=== PATIENT | male | born 1995 | race Asian ===

== ENCOUNTER 2018-03-03 00:44 | Emergency (ER) | payer OTHER ==
[~2018-03-03] VITALS: Ht 170.2 cm; Wt 99.8 kg
[2018-03-03] MEDS ORDERED: KETOROLAC 30 MG/ML VIAL IVP STA (00:48)
[2018-03-03] MEDS ORDERED: LACTATED RINGERS 1,000 ML IV ONE (00:48)
--- NOTE | 2018-03-03 00:55 | ED Abdominal Pain ---
General Stated Complaint: ABD PAIN Source of Information: Patient, Other (MULTIPLE FRIENDS IN ROOM ALL TRYING TO TALK FOR PT AND ALL EXTREMELY ANXIOUS) Exam Limitations: Language Barrier (PT SPEAKS [place]) History of Present Illness Date Seen by Provider: Mar 03, 2018 Time Seen by Provider: 00:43 Initial Comments PT ARRIVES VIA POV WITH MULTIPLE FRIENDS PT C/O SEVERE RLQ PAIN X 30 MINUTES TO 1 HOUR + NAUSEA AND VOMITED X 2 NO DIARRHEA NO FEVER NO PRIOR HISTORY OF ABDOMINAL PROBLEMS OR SURGERIES TOOK UNKNOWN OTC MEDICATION JUST PRIOR TO ARRIVAL PT [facility] AFTER PAIN [facility] Allergies and Home Medications Allergies Coded Allergies: No Known Drug Allergies (Unverified , 03/03/18) Home Medications Hydrocodone/Ibuprofen 1 Each Tablet, 1-2 EACH PO Q4H Prescribed by: HUNTER PELAEZ on 03/03/18230 Ondansetron 4 Mg Tab.rapdis, 4 MG PO Q4H Prescribed by: HUNTER PELAEZ on 03/03/18230 Sulfamethoxazole/Trimethoprim 1 Each Tablet, 1 EACH PO BID Prescribed by: HUNTER PELAEZ on 03/03/18230 Tamsulosin HCl 0.4 Mg Cap, 0.4 MG PO DAILY Prescribed by: HUNTER PELAEZ on 03/03/18230 Patient Home Medication List Home Medication List Reviewed: Yes Review of Systems Constitutional: no symptoms reported Respiratory: No Symptoms Reported Cardiovascular: No Symptoms Reported Gastrointestinal: See HPI, Abdominal Pain; Denies Diarrhea; Nausea, Vomiting Genitourinary: No Symptoms Reported Musculoskeletal: no symptoms reported Skin: no symptoms reported Psychiatric/Neurological: Anxiety Past Ygokism-Ybacwu-Lprpos Hx Patient Social History Alcohol Use: Denies Use Recreational Drug Use: No Smoking Status: Never a Smoker Recent Foreign Travel: No Contact w/Someone Who Travel: No Past Medical History Surgeries: No Respiratory: No Cardiac: No Neurological: No Genitourinary: No Gastrointestinal: No Musculoskeletal: No Endocrine: No HEENT: No Cancer: No Did You Recieve Any Treatments: No Psychosocial: No Integumentary: No Physical Exam Vital Signs Capillary Refill : General Appearance: WD/WN, other (EXTREMELY ANXIOUS, HYPERVENTILATING) Respiratory: normal breath sounds, other (HYPERVENTILATING) Cardiovascular: regular rate, rhythm, no murmur Gastrointestinal: normal bowel sounds, soft, tenderness (DIFFUSE TENDERNESS, BUT MOST TENDER IN SUPRAPUBIC AREA AND LOW, RLQ AREA) Extremities: normal inspection, normal capillary refill Back: no vertebral tenderness, CVA tenderness (R) (MORE TENDER ON RIGHT), CVA tenderness (L) 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, no motor/sensory deficits, alert, oriented x 3 Skin: normal color, warm/dry Progress/Results/Core Measures Lab Results Laboratory Tests Test 03/03/18 00:50 03/03/18 02:18 Range/Units White Blood Count 13.0 H 4.3-11.0 10^3/uL Red Blood Count 5.00 4.35-5.85 10^6/uL Hemoglobin 14.9 13.3-17.7 G/DL Hematocrit 43 40-54 % Mean Corpuscular Volume 85 80-99 FL Mean Corpuscular Hemoglobin 30 25-34 PG Mean Corpuscular Hemoglobin Concent 35 32-36 G/DL Red Cell Distribution Width 11.9 10.0-14.5 % Platelet Count 238 130-400 10^3/uL Mean Platelet Volume 10.9 H 7.4-10.4 FL Neutrophils (%) (Auto) 67 42-75 % Lymphocytes (%) (Auto) 26 12-44 % Monocytes (%) (Auto) 7 0-12 % Eosinophils (%) (Auto) 0 0-10 % Basophils (%) (Auto) 0 0-10 % Neutrophils # (Auto) 8.7 H 1.8-7.8 X 10^3 Lymphocytes # (Auto) 3.3 1.0-4.0 X 10^3 Monocytes # (Auto) 1.0 0.0-1.0 X 10^3 Eosinophils # (Auto) 0.0 0.0-0.3 10^3/uL Basophils # (Auto) 0.1 0.0-0.1 10^3/uL Sodium Level 140 135-145 MMOL/L Potassium Level 3.7 3.6-5.0 MMOL/L Chloride Level 104 98-107 MMOL/L Carbon Dioxide Level 22 21-32 MMOL/L Anion Gap 14 5-14 MMOL/L Blood Urea Nitrogen 15 7-18 MG/DL Creatinine 1.11 0.60-1.30 MG/DL Estimat Glomerular Filtration Rate > 60 BUN/Creatinine Ratio 14 Glucose Level 150 H 70-105 MG/DL Calcium Level 10.4 H 8.5-10.1 MG/DL Total Bilirubin 0.5 0.1-1.0 MG/DL Aspartate Amino Transf (AST/SGOT) 32 5-34 U/L Alanine Aminotransferase (ALT/SGPT) 55 0-55 U/L Alkaline Phosphatase 63 40-136 U/L Total Protein 8.0 6.4-8.2 GM/DL Albumin 4.6 H 3.2-4.5 GM/DL Amylase Level 56 25-125 U/L Lipase 15 8-78 U/L Urine Color YELLOW Urine Clarity SLIGHTLY CLOUDY Urine pH 7 5-9 Urine Specific [place] 1.010 L 1.016-1.022 Urine Protein 1+ H NEGATIVE Urine Glucose (UA) NEGATIVE NEGATIVE Urine Ketones NEGATIVE NEGATIVE Urine Nitrite NEGATIVE NEGATIVE Urine Bilirubin NEGATIVE NEGATIVE Urine Urobilinogen NORMAL NORMAL MG/DL Urine Leukocyte Esterase NEGATIVE NEGATIVE Urine RBC (Auto) 5+ H NEGATIVE Urine RBC 50-100 H /HPF Urine WBC NONE /HPF Urine Squamous Epithelial Cells RARE /HPF Urine Crystals NONE /LPF Urine Bacteria NEGATIVE /HPF Urine Casts PRESENT /LPF Urine Hyaline Casts RARE /LPF Urine Mucus SMALL H /LPF Urine Culture Indicated NO My Orders Orders - HUNTER PELAEZ DO Saline Lock/Iv-Start (03/03/18 00:48) Amylase (03/03/18 00:48) Cbc With Automated Diff (03/03/18 00:48) Comprehensive Metabolic Panel (03/03/18 00:48) Lipase (03/03/18 00:48) Ua Culture If Indicated (03/03/18 00:48) Ct Abd/Pelvis Wo(Kidney Stone) (03/03/18 00:48) Abdomen/Kub 1view (03/03/18 00:48) Saline Lock/Iv-Start (03/03/18 00:48) Lactated Ringers (Lr 1000 Ml Iv Solution (03/03/18 00:48) Ketorolac Injection (Toradol Injection) (03/03/18 00:48) Diphenhydramine Injection (Benadryl Inje (03/03/18 01:00) Alfuzosin (Not Stocked) (Uroxatral (Not (03/03/18 02:15) Rx-Trimeth/Sulfameth Ds Tab (Rx-Bactrim/ (03/03/18 02:10) Rx-Hydrocodone/Apap 5-325 Mg (Rx-Vicodin (03/03/18 02:15) Medications Given in ED Current Medications Medications Dose Ordered Sig/Emilee Route Start Time Stop Time Status Last Admin Dose Admin Acetaminophen/ Hydrocodone Bitart 1 ea Q4H PRN PO 03/03/18 02:15 03/03/18 02:46 DC 03/03/18 02:30 1 EA Diphenhydramine HCl 50 mg ONCE ONCE IVP 03/03/18 01:00 03/03/18 01:01 DC 03/03/18 01:05 50 MG Lactated Ringer's 1,000 ml @ 0 mls/hr Q0M ONCE IV 03/03/18 00:48 03/03/18 00:51 DC 03/03/18 01:04 999 MLS/HR Progress Note : Progress Note SYMPTOMS COMPLETELY RESOLVED WITH TORADOL PT POSSIBLY PASSED STONE FRAGMENT PRIOR TO DISMISSAL Comments UB--NO ACUTE PROCESS, PENDING RADIOLOGIST REVIEW CT ABDOMEN/PELVIS--1 MM STONE IN DISTAL RIGHT URETER WITH MILD RIGHT HYDROURETERONEPHROSIS PER [facility] VIA FAX @ 2255 Reviewed: Reviewed by Me Departure Impression Primary Impression: Right distal ureteral calculus Disposition: HOME, SELF-CARE Condition: Improved Departure-Patient Inst. Referrals: BRIELLE TURCIOS MD Patient Instructions: Kidney Stones (DC) Add. Discharge Instructions: LOTS OF CLEAR LIQUIDS--WATER, BROTH, JELLO, GATORADE FOLLOW UP WITH [facility] TOMORROW FOR FURTHER CARE RETURN TO ER IF SYMPTOMS WORSEN Scripts Ondansetron (Zofran Odt) 4 Mg Tab.rapdis 4 MG PO Q4H for Nausea/Vomiting, #10 TAB Prov: LATANYA,HUNTER K DO 03/03/18 Hydrocodone/Ibuprofen (Hydrocodone-Ibuprofen 7.5-200) 1 Each Tablet 1-2 EACH PO Q4H for Pain, #20 TAB Prov: LATANYA,HUNTER K DO 03/03/18 Tamsulosin HCl (Flomax) 0.4 Mg Cap 0.4 MG PO DAILY, #10 CAP Prov: LATANYA,HUNTER K DO 03/03/18 Sulfamethoxazole/Trimethoprim (Bactrim Ds Tablet) 1 Each Tablet 1 EACH PO BID, #20 TAB Prov: LATANYA,HUNTER K DO 03/03/18 HUNTER PELAEZ DO Mar 03, 2018 00:55
[2018-03-03] MEDS ORDERED: diphenhydrAMINE 50 MG/ML INJ (BENADRYL) IVP ONE (01:00)
[2018-03-03 01:13] LABS: BASOPHILS # (AUTO) 0.1 10^3/uL (0.0-0.1); BASOPHILS % (AUTO) 0 % (0-10); HEMATOCRIT 43 % (40-54); HEMOGLOBIN 14.9 G/DL (13.3-17.7); LYMPHOCYTES # (AUTO) 3.3 X 10^3 (1.0-4.0); LYMPHOCYTES % (AUTO) 26 % (12-44); MEAN CORPUSCULAR HEMOGLOBIN 30 PG (25-34); MEAN CORPUSCULAR HGB CONC 35 G/DL (32-36); MEAN CORPUSCULAR VOLUME 85 FL (80-99); MEAN PLATELET VOLUME 10.9 FL (7.4-10.4); MONOCYTES % (AUTO) 7 % (0-12); PLATELET COUNT 238 10^3/uL (130-400); RED CELL DISTRIBUTION WIDTH 11.9 % (10.0-14.5)
[2018-03-03 01:18] LABS: EOSINOPHILS % (AUTO) 0 % (0-10); NEUTROPHILS # (AUTO) 8.7 X 10^3 (1.8-7.8); NEUTROPHILS % (AUTO) 67 % (42-75)
[2018-03-03 01:27] LABS: ALANINE AMINOTRANSFERASE 55 U/L (0-55); ALBUMIN 4.6 GM/DL (3.2-4.5); ALKALINE PHOSPHATASE 63 U/L (40-136); AMYLASE 56 U/L (25-125); BILIRUBIN,TOTAL 0.5 MG/DL (0.1-1.0); BUN/CREATININE RATIO 14; CALCIUM 10.4 MG/DL (8.5-10.1); CARBON DIOXIDE 22 MMOL/L (21-32); CHLORIDE 104 MMOL/L (98-107); CREATININE SERUM 1.11 MG/DL (0.60-1.30); GFR ESTIMATED > 60; GLUCOSE 150 MG/DL (70-105); LIPASE 15 U/L (8-78); POTASSIUM 3.7 MMOL/L (3.6-5.0); SODIUM 140 MMOL/L (135-145)
[2018-03-03] MEDS ORDERED: RX-TRIMETH/SULFA. 160-800 MG (BACTRIM DS) TAB PPK#2 PO STA (02:10)
[2018-03-03] MEDS ORDERED: ALFUZOSIN HCL 10 MG TAB (UROXATRAL) PO SCH (02:15)
[2018-03-03] MEDS ORDERED: RX-HYDROCODONE/APAP 5/325 MG #4 TAB PK PO PRN (02:15)
[2018-03-03] MEDS ORDERED: HYDR-87 PO (02:31)
[2018-03-03] MEDS ORDERED: ONDA4TAB8 PO (02:31)
[2018-03-03] MEDS ORDERED: SULF1TAB35 PO (02:31)
[2018-03-03] MEDS ORDERED: TAMS0.4C98 PO (02:31)
[2018-03-03 02:47] LABS: BILIRUBIN,URINE NEGATIVE (NEGATIVE); CLARITY,URINE SLIGHTLY CLOUDY; COLOR,URINE YELLOW; GLUCOSE, URINE (UA) NEGATIVE (NEGATIVE); KETONES,URINE NEGATIVE (NEGATIVE); LEUKOCYTE ESTERASE ,URINE NEGATIVE (NEGATIVE); NITRITE,URINE NEGATIVE (NEGATIVE); PH,URINE 7 (5-9); PROTEIN,URINE 1+ (NEGATIVE); UROBILINOGEN,URINE NORMAL (NORMAL)
[2018-03-03 02:48] LABS: RBC,URINE 50-100 /HPF
[2018-03-03 02:49] LABS: BACTERIA,URINE NEGATIVE /HPF; HYALINE CASTS, URINE RARE /LPF; SQUAMOUS EPITHELIAL CELL,UR RARE /HPF
[2018-03-03 06:42] VITALS: BP 163/111
--- NOTE | 2018-03-03 06:53 | Diagnostic Imaging Report ---
PROCEDURE: CT urinary tract, rule out kidney stone. TECHNIQUE: Multiple contiguous axial images were obtained through the abdomen and pelvis without the use of intravenous contrast. INDICATION: Right flank pain. COMPARISON: None. FINDINGS: The lung bases are clear. The liver, gallbladder, pancreas, spleen and adrenal glands appear unremarkable. There is a subtle 2 mm stone in the distal right ureter just proximal to the ureterovesical junction with minimal right hydroureter and caliectasis of the right kidney. Kidneys and ureters are otherwise unremarkable. The appendix appears normal. There is no evidence of bowel obstruction. There is no free fluid, free air or focal inflammatory process. The abdominal aorta appears normal in caliber. Osseous structures appear unremarkable. IMPRESSION: 1. There is a 1-2 mm stone in distal right ureter just proximal to the ureterovesical junction with minimal right hydroureteronephrosis. 2. No additional abnormality is seen. Agree with [facility] interpretation. Dictated by: Dictated on workstation # [id number]
--- NOTE | 2018-03-03 06:59 | Diagnostic Imaging Report ---
INDICATION: Flank pain COMPARISON: None FINDINGS: Two views of the abdomen were obtained. The bowel gas pattern is unremarkable. No urinary tract calcifications are suspected. A tiny distal right ureteral stone seen on CT from the same date is not visualized. There are calcifications in left pelvis likely phleboliths. The osseous structures appear unremarkable. IMPRESSION: No acute abnormality is demonstrated. Dictated by: Dictated on workstation # [id number]
== END 2018-03-03 02:45 | disposition home or self-care (01) ==
LOC: ER 00:46
DX: N20.1 Calculus of ureter (principal)
CPT/HCPCS: 36415; 74018; 74176; 80053; 81000; 82150; 83690; 85025; 96361; 96374; 96375